=== PATIENT | female | born 1985 | race African-American/Black ===

== ENCOUNTER 2019-05-09 14:28 | Emergency (ER) | payer OTHER ==
[~2019-05-09] VITALS: Ht 165.1 cm; Wt 77.1 kg
[2019-05-09] MEDS ORDERED: DiphenhydrAMINE 50mg/ml Inj IM ONE (14:30)
[2019-05-09] MEDS ORDERED: LORazepam Inj 2mg/ml 1ml IM ONE (14:30)
[2019-05-09] MEDS ORDERED: Haloperidol 5mg/ml Inj IM ONE (14:30)
[2019-05-09 14:35] VITALS: BP 130/100
[2019-05-09] MEDS ORDERED: LORazepam Inj 2mg/ml 1ml ONE (14:38)
[2019-05-09] MEDS ORDERED: DiphenhydrAMINE 50mg/ml Inj ONE (14:39)
[2019-05-09] MEDS ORDERED: Haloperidol 5mg/ml Inj ONE ×2 (14:39→14:41)
--- NOTE | 2019-05-09 14:40 | NUR ---
ED Nurse Note: Patient was BIBA from [facility], due to OD on edble gummies. Patient stated took 2 gummies. Patient presented anxious, has hallucinations, AAO x1, HR 115, O2 sat 96% on RA. Patient had 1 episode vomiting during triage.
--- NOTE | 2019-05-09 14:41 | Emergency Room Report ---
History of Present Illness General Chief Complaint: Overdose Source: Patient Present Illness HPI 33-year-old female no past medical history no surgical history presents with marijuana overdose patient was celebrating at a [employer] for friend graduation, and took a large amount of marijuana gummy bears made her very anxious and paranoid severity is severe symptoms started just prior to arrival patient is very agitated history is limited Allergies: Coded Allergies: No Known Allergies (Unverified , 05/09/19) Patient History Limited by: medical condition - Currently agitated Past Medical History: see triage record Social History: Reports: drug use - Marijuana Reviewed Nursing Documentation: PMH: Agreed; PSxH: Agreed Nursing Documentation-PMH Past Medical History: No Stated History Review of Systems All Other Systems: limited - Agitated due to marijuana Physical Exam Vital Signs Date Time Temp Pulse Resp B/P (MAP) Pulse Ox O2 Delivery O2 Flow Rate FiO2 05/09/19 14:22 98.1 90 24 130/100 (110) 99 Room Air Sp02 EP Interpretation: reviewed, normal General Appearance: alert, GCS 15 Head: normocephalic, atraumatic Eyes: bilateral eye PERRL, bilateral eye EOMI ENT: uvula midline, moist mucus membranes Neck: supple, thyroid normal, supple/symm/no masses Respiratory: lungs clear, no respiratory distress, no retraction, no accessory muscle use Cardiovascular #1: normal peripheral pulses, no edema, no gallop, no murmur, tachycardia Gastrointestinal: non tender, soft, no guarding, no rebound Musculoskeletal: normal inspection Neurologic: alert, responsive Psychiatric: anxious Skin: no rash, warm/dry Medical Decision Making Diagnostic Impression: Primary Impression: Drug overdose Qualified Codes: T50.901A - Poisoning by unspecified drugs, medicaments and biological substances, accidental (unintentional), initial encounter ER Course 33-year-old female confused, concern for possible marijuana overdose patient required sedation lorazepam Benadryl and Haldol Patient required some sedation due to agitation and due to safety concerns for the staff Reevaluation 6:25 PM patient sleeping comfortably being rehydrated tachycardia has resolved We will continue to monitor patient once sober will discharge patient Patient sobered feels better went home with friends Rhythm Strip Diag. Results Rhythm Strip Time: 19:42 EP Interpretation: yes Rate: 92 Rhythm: NSR, no PVC's, no ectopy Last Vital Signs Date Time Temp Pulse Resp B/P (MAP) Pulse Ox O2 Delivery O2 Flow Rate FiO2 05/09/19 14:22 98.1 90 24 130/100 (110) 99 Room Air Disposition: HOME, SELF-CARE Condition: Stable Scripts No Active Prescriptions or Reported Meds Referrals: [facility] Lynnette Eddiangy [facility] Patient Instructions: Cannabis Use Disorder Additional Instructions: The patient was provided with discharge instructions, notified to follow-up with a primary care doctor and or specialist in the next 24-48 hours, and to return to the ED if they have worsening of their symptoms. Please note that this report is being documented using [employer] technology. This can lead to erroneous entry secondary to incorrect interpretation by the dictating instrument. Gene Nino MD May 09, 2019 14:41
[2019-05-09 18:35] VITALS: BP 130/100
--- NOTE | 2019-05-09 18:52 | NUR ---
ED Nurse Note: Patient is sleeping, VSS at this time, no acute disstress noted
--- NOTE | 2019-05-09 20:10 | NUR ---
ER DISCHARGE NOTE: Patient is cleared to be discharged per ERMD, pt is aox4, on room air, with stable vital signs. pt was given dc and prescription instructions, pt was able to verbalize understanding, pt id band and iv site removed without complications. pt is able to ambulate with steady gait. pt took all belongings.
== END 2019-05-09 20:15 | disposition home or self-care (01) ==
LOC: EDBD 14:28 → EMR 20:11
DX: T40.7X1A Poisoning by cannabis (derivatives), accidental (unintentional), initial encounter (principal); Y92.9 Unspecified place or not applicable
CPT/HCPCS: 96372; 99283; J1200; J1630